=== PATIENT | male | born 1950 | race Caucasian/White ===

== ENCOUNTER 2017-09-07 17:22 | Emergency (ER) | payer MEDICARE, OTHER ==
[~2017-09-07] VITALS: Ht 170.2 cm; Wt 87.5 kg
[~2017-09-07 17:22] MED LIST: ALEVE220 MG PO; ATIVAN PO; CARDURA2 MG PO; CARVEDILOL12.5 MG PO; CO Q-10100 MG PO; CO Q-10200 MG PO; COREG PO; CRESTOR5 MG PO; CYCLOBENZAPRINE10 MG PO; DEXILANT30 MG PO; HYDROCODON-ACE1 EAC7 PO; LOW DOSE ASPIRI81 M1 PO; NITROQUICK0.4 MG SL; PLAVIX 75 MG TA75 MG PO; PRINIVIL20 MG PO; THERA-M CAPLET1 EACH PO; ZANTAC 150MG T150 M1 PO
[2017-09-07] MEDS ORDERED: PLAVIX 75 MG TA75 M1 PO (17:30)
[2017-09-07 17:54] LABS: ABSOLUTE BASOPHILS 0.1 thou/uL (0.0-0.2); ABSOLUTE EOSINOPHILS 0.3 thou/uL (0.0-0.7); ABSOLUTE LYMPHOCYTES 1.5 thou/uL (0.8-5.3); ABSOLUTE MONOCYTES 0.7 thou/uL (0.0-1.2); ABSOLUTE NEUTROPHILS 4.5 thou/uL (1.6-8.1); BASOPHILS 1.2 %; EOSINOPHILS 4.5 %; HEMATOCRIT 42.5 % (42.0-52.0); HEMOGLOBIN 14.3 gm/dL (14.0-18.0); LYMPHOCYTES 21.1 %; MCH 30.9 pg (26.0-34.0); MCHC 33.8 g/dL (28.0-37.0); MCV 91.4 fL (80.0-100.0); MONOCYTES 9.6 %; MPV 8.3 fl. (7.2-11.1); NUCLEATED RBCS 0 /100WBC; PLATELET COUNT* 172 thou/uL (150-400); POLYS 63.6 %; RBC 4.65 mil/uL (4.50-6.00); RDW-CV 13.9 % (10.5-14.5); WBC 7.1 thou/uL (4.0-11.0)
[2017-09-07 17:59] LABS: ANION GAP 8 mmol/L (7-16); BUN 23 mg/dL (7-18); CALCIUM 8.4 mg/dL (8.5-10.1); CHLORIDE 105 mmol/L (98-107); CO2 26 mmol/L (21-32); CREATININE 1.1 mg/dL (0.6-1.3); GLUCOSE 95 mg/dL (70-99); SODIUM 139 mmol/L (136-145)
[2017-09-07 18:09] LABS: ALBUMIN 3.3 g/dL (3.4-5.0); ALKALINE PHOSPHATASE 51 U/L (46-116); LIPASE 166 U/L (73-393); NT-PRO BRAIN NAT PEPTIDE 121 pg/mL (<300); SGOT 19 U/L (15-37); SGPT 29 U/L (30-65); TOTAL BILIRUBIN 0.7 mg/dL (<0.1-1.0); TOTAL PROTEIN 6.5 g/dL (6.4-8.2); TROPONIN-I LEVEL <0.06 ng/mL (<0.06)
[2017-09-07 20:05] VITALS: BP 143/71
--- NOTE | 2017-09-08 13:57 | EKG ---
[place] [address] ELECTROCARDIOGRAM REPORT Name: BLADE RAMIREZ Room: [facility]#: [id number] Admission: 09/07/17 Attend Phys: Discharge: 09/07/17 Date of : 50 Report #: [id number] THIS REPORT FOR: //name// [facility] ED Test Date: 2017-09-07 Test Time: 17:26:51 Pat Name: BLADE ALMANZARFFER Department: Room: Gender: M [employer]: : 1950 Requested By: Hossein Cortez Order Number: [id number] MD: eCsar Moss Measurements Intervals [place] Rate: 70 P: 55 [place]: 128 QRS: 81 QRSD: 139 T: 0 QT: 438 QTc: 473 Interpretive Statements Sinus rhythm Atrial premature complexes Right bundle branch block Consider inferior infarct Compared to ECG 11/01/2010 12:49:28 Atrial premature complex(es) now present Sinus bradycardia no longer present Myocardial infarct finding still present Electronically Signed On 09-08-2017 13:57:32 CDT by Cesar Moss [email or web address] <ELECTRONICALLY SIGNED> By: Cesar Moss MD, [facility] 09/08/17 [id number] 1726 1726 Cesar Moss MD, [facility] /EPI
== END 2017-09-07 20:08 | disposition home or self-care (01) ==
LOC: M.ERS 17:22
PROVIDERS: Emergency Medicine
DX: I25.10 Atherosclerotic heart disease of native coronary artery without angina pectoris (principal); I10 Essential (primary) hypertension; E78.5 Hyperlipidemia, unspecified; K21.9 Gastro-esophageal reflux disease without esophagitis; Z90.89 Acquired absence of other organs; Z88.8 Allergy status to other drugs, medicaments and biological substances